=== PATIENT | male | born 1950 | race Caucasian/White ===

== ENCOUNTER → 2017-09-17 11:25 | Outpatient (CLI) | payer MEDICARE, OTHER, SELFPAY ==
--- NOTE | 2017-09-17 | DI.MRI.S_ITS ---
PROCEDURE: MR KNEE LT WO CON INDICATIONS: LEFT KNEE PRIMARY OSTEOARTHRITIS TECHNIQUE: Noncontrast sagittal PD fast spin echo and T2 fast spin echo with fat saturation, sagittal 3-D FLASH with fat saturation; coronal T1 spin echo and PD fast spin echo with fat saturation, and axial PD fast spin echo with fat saturation through the knee. COMPARISON: [facility], MR, LOW.EXTR.NO JOINT WWO CONTRAST, 01/27/2016, 14:12. [facility], MR, LOWER EXTREM. JNT WO CONTRAST, 08/22/2011, 10:07. FINDINGS: Image quality: Mild metallic susceptibility artifact from the patient's contralateral knee arthroplasty does create artifact on the left and results in suboptimal evaluation for subtle bony or soft tissue abnormalities, particularly on the medial aspect of the knee. Bones and joint: There is no acute fracture or dislocation. No suspicious osseous lesions are evident. There is a small knee joint effusion with an associated large Gomez's cyst. Moderate to severe tricompartmental degenerative changes of the left knee are identified. There is extensive chondromalacia identified within the medial and lateral tibiofemoral compartments with large cartilaginous defects identified. Areas of degenerative/reactive marrow change are present. There is lateral joint space narrowing. Developing marginal osteophytes are noted within all 3 compartments of the knee. Cruciate ligaments: The anterior probably is completely torn. The posterior cruciate ligament appears to be intact. Menisci: Posterior root avulsion of the medial and lateral menisci appear to be present with extensive maceration of the the medial and lateral meniscal posterior horns. Additional areas of partial-thickness tearing are seen involving the body and anterior horns of the medial and lateral menisci. Medial structures: The medial collateral ligament appears intact. The semimembranosus tendon insertion appears intact. The imaged portions of the pes anserinus tendons are unremarkable. No definite fluid is contained within the pes anserinus bursa. Lateral structures: The popliteal tendon is intact. However, there may be thickening involving this tendon. The lateral collateral ligament proper (fibular collateral ligament) and the proximal tibiofibular ligaments are intact. The distal aspect of the biceps femoris tendon and the iliotibial band are intact. Anterior structures: The quadriceps and patellar tendons are intact. There is no significant edema in the infrapatellar fat pad. IMPRESSION: 1. Moderate to severe degenerative changes of the left knee are most pronounced within the lateral compartment. 2. Full thickness anterior cruciate ligament tear. 3. Complex tears of the medial and lateral menisci with posterior root avulsions. 4. Small knee joint effusion with an associated prominent Gomez cyst. 5. Probable proximal popliteal tendinopathy. Dictated by: Efra Montejo M.D. on 09/17/2017 at 13:44 Approved by: Efra Montejo M.D. on 09/17/2017 at 13:50
== END ==
PROVIDERS: Visit Provider Orthopaedic Surgery
DX: M17.12 Unilateral primary osteoarthritis, left knee (principal); S83.512A Sprain of anterior cruciate ligament of left knee, initial encounter; M25.462 Effusion, left knee; S83.242A Other tear of medial meniscus, current injury, left knee, initial encounter; S83.282A Other tear of lateral meniscus, current injury, left knee, initial encounter
CPT/HCPCS: 73721

== ENCOUNTER → 2017-10-03 13:15 | Outpatient (CLI) | payer MEDICARE, OTHER, SELFPAY | PROVIDERS: Visit Provider Orthopaedic Surgery | DX: N39.9 Disorder of urinary system, unspecified (principal); R73.09 Other abnormal glucose; Z01.818 Encounter for other preprocedural examination; Z01.812 Encounter for preprocedural laboratory examination | CPT/HCPCS: 93005 ==

== ENCOUNTER 2017-11-13 08:24 | Inpatient (IN) | payer MEDICARE, OTHER, SELFPAY ==
[2017-11-05 12:40] VITALS: BMI 43.6
[2017-11-13] VITALS (19 sets, daily range): BP systolic 125–179; BP diastolic 65–97; PULSE 57–79; RESP 8–17; TEMP 36–36.9; O2SAT 91–98; BMI 43.6
--- NOTE | 2017-11-13 | DI.RAD.S_ITS ---
PROCEDURE: XR KNEE LT 1TO2V INDICATIONS: TOTAL LEFT KNEE TECHNIQUE: 2 views of the knee acquired. COMPARISON: None. FINDINGS: Bones: Patient is status post left knee joint arthroplasty. Hardware components are in expected positions. Visualized bony structures are intact. Soft tissues: Overlying postoperative changes are noted including surgical drain, surgical suzi, and gas and fluid in the joint space.. IMPRESSION: 1. Expected postsurgical changes status post left knee arthroplasty. Dictated by: Vinicius Solano M.D. on 11/13/2017 at 14:55 Approved by: Vinicius Solano M.D. on 11/13/2017 at 14:55
[2017-11-13] MEDS: LACTATED RINGERS 1,000 ML 42 ML IV (09:22)
[2017-11-13] MEDS: VANCOMYCIN 1,000 MG/200 ML FROZ.PIGGY 200 MG IV (09:51)
[2017-11-13] MEDS: CEFAZOLIN VIAL 3 GM in SODIUM CHLORIDE 0.9% 100 ML 200 ML IV (10:30)
--- NOTE | 2017-11-13 10:36 | P.OP_ITS ---
Operative Date/Time/Diagnoses Date of procedure: 11/13/17 Time of procedure: 10:41 Pre-op diagnosis: Left knee osteoarthritis Post-op diagnosis: same Procedure & Clinicians Procedure: Left total knee arthroplasty Same procedure as scheduled: Yes Indications: The patient has had progressively worsening left knee pain with radiographic changes consistent with arthritis. Non-operative management has failed and the patient has requested total knee replacement. The risks, benefits and alternatives to surgery were discussed with the patient prior to proceeding. Risks discussed included, but were not limited to, failure to relieve pain, stiffness, infection, nerve damage, deep venous thrombosis, pulmonary embolism, stroke, coma, heart attack, permanent paralysis and , as well as the potential need for eventual revision of the prosthetic. Surgeon: Jaimie Lopes Cooker Pie Filling: Akila Izquierdo Anesthesia Type: General Operative Notes Findings: Severe left knee osteoarthritis Closure Type: primary Specimen(s): none sent Implants & Drains: Lopes and Nephew Eleanor BCS 2 femur 7, tibia 6, poy +10, patella 38 Applied: drain(s) Estimated Blood Loss (mL): 300 Blood products transfused: none Tourniquet time (min): 77 Procedure in detail: The patient was seen in the pre-operative area, where the patient identified the left knee as the operative site and this was marked with my initials. The patient received pre-operative antibiotics, and was taken to the operating room and placed on the operative table in the supine position. After satisfactory anesthesia, a multimedia manager out was performed. The left leg was encircled with a tourniquet about the proximal thigh, and the leg was prepared from the toes to the tourniquet with ChloroPrep in the usual fashion and draped through sterile drapes. The leg was elevated and exsanguinated with Eschmark bandage and the tourniquet inflated to [250] mmHg pressure. The knee was approached through an approximately 18 cm incision centered over the patella and carried into the knee through a medial parapatellar arthrotomy. A portion of the medial and lateral meniscus was resected. Soft tissue was carefully mobilized around the patella the patella was measured with a caliper. Bone was resected from the patella and the patellar height was reconstituted with up an appropriate sized patellar component. For a cover was then placed on the patella. A small amount of additional medial and lateral meniscus was resected. The visionare guide fit well to the distal femur. It looked like an appropriate distal femoral cut and the cut was made without difficulty. The rotation was assessed and the appropriate size femoral guide was placed on the distal femur and finishing cuts were made. There was no evidence of notching. The anterior, posterior and chamfer cuts were then made. The posterior osteophytes and soft tissues were then removed. The posterior capsule was injected with part of a mixture of 60 ml 0.25% Marcaine mixed with 20 ml Exparel for post operative pain control. The remainder of this mixture was injected into the capsule and subcutaneous tissues during cement curing. The tibia was prepared and the visionaire guide fit well to the distal tibia. The rotation was assessed. The patient was placed in extension residual medial and lateral meniscus as well as any residual bone was carefully resected. [No] additional tibia was resected. Hemostasis was achieved especially posteriorly. Additional local was injected into the posterior capsule. The extension gap was assessed and additional releases for gap balancing were performed as necessary. It was checked with the gap manager games. The femoral component was trial was placed and the notch was finished. Trial tibial and femoral components were then placed and the knee placed through a range of motion. Range of motion was [ 0-130], with good stability throughout the range. The trials were then removed, and the tibia was finished. The bone was prepared with pulsatile lavage, and dried with a sponge. Cement was applied and the final prosthetics placed. Excess cement was removed during and after cement curing. A brief Betadine soak was performed. After confirming there was no extruded cement posteriorly, the final tibial insert was placed. The knee was copiously irrigated and the tourniquet deflated. Hemostasis was obtained with the cautery. A drain was placed and brought out superolaterally. The capsule was closed with interrupted # 1 black braided suture. The subcutaneous layer was closed with barbed sutures, and the skin with a running 3-0 V-Lock suture and Surgical glue. An Aquacel Ag dressing was applied and the patient was taken to recovery having tolerated the procedure well. Complications: none Condition: stable Disposition: Acute Care Plan for aftercare: The patient will be maintained on a standard total knee replacement protocol with weight bearing as tolerated. The patient will receive Aspirin and sequential compression devices for DVT prophylaxis. The patient will be discharged home when safe for the home environment.
--- NOTE | 2017-11-13 10:36 | PM.PREOP ---
Pre-operative Note Interval Note Pre-op Check: History & Physical Reviewed by Physician
[2017-11-13] MEDS: BUPIVACAINE LIPOSOME 266 MG/20 ML VIAL INJ (11:16)
[2017-11-13] MEDS: BUPIVACAINE 0.25% W/ EPI 50 ML VIAL INJ (11:16)
[2017-11-13] MEDS: POVIDONE-IODINE 15 ML, SODIUM CHLORIDE 0.9% 250 ML TOP (11:17)
--- NOTE | 2017-11-13 11:23 | SUR.OPER ---
Supine on padded OR bed. Pillow under head, arms secured on padded armboards <90 degree abduction. Safety belt across torso. Non-operative leg secured with tape over blanket over lower leg. Operative leg secured in DeMayo/Luke positioner. Foam padded brace at thigh of operative leg.
[2017-11-13] MEDS: TRANEXAMIC ACID 1,000 MG VIAL 1000 MG IV (11:31)
[2017-11-13] MEDS: LACTATED RINGERS 1,000 ML 40 ML IV (12:33)
[2017-11-13] MEDS: HYDROMORPHONE 2 MG INJ 0.25 MG IV ×4 (13:29→13:45)
--- NOTE | 2017-11-13 13:54 | SUR.PHASEI ---
REPORT CALLED TO SUSHMA LOPEZ ON ACUTE CARE FLOOR. PT IN STABLE CONDITION, VSS. IV SITE CLEAR. DRSG TO SURGICAL KNEE OBSERVED TO BE C/D/I. HEMOVAC INTACT AND CLAMPED. PT TOLERATING ORAL INTAKE WITHOUT ANY DIFFICULTLY. PT DENIES ANY NAUSEA. PT STATES PAIN LEVEL IS TOLERABLE AT THIS TIME, 08/14. SURGICAL EXTREMITY WARM TO TOUCH, CAP REFILL WNL, +PULSE AND +SENSTATION. PT TRANSFERED TO ACUTE CARE FLOOR. PT ALERT AND TALKING TO RN DURING TRANSPORT. PT TRANSPORTED ON 2L REMAINED 95-96%. BEDSIDE REPORT GIVEN TO SUSHMA HODGES. TRANSFERED CARE OF PT TO SUSHMA HODGES.
--- NOTE | 2017-11-13 14:08 | PC.NURSE ---
Day shift: Arrived on unit at approx 1400. A&Ox4. CMS in tact. VS ok. BP elevated. Pain 08/14. Gonzales-vac clamped. 2L NC 98%. PPP. Oriented to room and call light. High fall risk. Agrees to not get OOB. Door to room open.
[2017-11-13] MEDS: LACTATED RINGERS 1,000 ML 125 ML IV ×2 (14:42→22:18)
[2017-11-13] MEDS: CEFAZOLIN 2 GM/100 ML FROZ.PIGGY IV ×2 (17:21→22:15)
[2017-11-13] MEDS: FUROSEMIDE 40 MG TABLET 80 MG PO (17:21)
[2017-11-13] MEDS: ACETAMINOPHEN 325 MG TABLET 650 MG PO (17:27)
[2017-11-13] MEDS: OXYCODONE IR 10 MG TABLET PO (20:18)
[2017-11-13] MEDS: ASPIRIN EC 81 MG TABLET PO (20:19)
[2017-11-13] MEDS: DOCUSATE 100 MG CAPSULE PO (20:19)
[2017-11-13] MEDS: ATORVASTATIN 20 MG TABLET PO (20:19)
[2017-11-13] MEDS: FERROUS SULFATE 325 MG TABLET PO (20:19)
[2017-11-13] MEDS: LOSARTAN 50 MG TABLET PO (20:20)
[2017-11-13] MEDS: METOPROLOL 25 MG TABLET PO (20:21)
[2017-11-13] MEDS: SENNOSIDES 8.6 MG TABLET 17.2 MG PO (20:21)
[2017-11-13] MEDS: METOCLOPRAMIDE 10 MG/2 ML INJ IV (20:22)
[2017-11-14] MEDS: ACETAMINOPHEN 325 MG TABLET 650 MG PO ×3 (00:26→11:56)
[2017-11-14 00:44] VITALS: BP 136/79; PULSE 58; RESP 17; TEMP 36.6; O2SAT 100
[2017-11-14 04:39] VITALS: BP 136/80; PULSE 61; RESP 17; TEMP 36.5; O2SAT 98
[2017-11-14 05:44] LABS: Hematocrit 35.3 % (41-53); Hemoglobin 12.1 g/dL (13.5-17.5)
[2017-11-14] MEDS: PANTOPRAZOLE 40 MG TABLET PO (05:59)
[2017-11-14 07:50] VITALS: BP 113/71; PULSE 63; RESP 16; TEMP 36.4; O2SAT 97
--- NOTE | 2017-11-14 07:59 | P.DS_ITS ---
History of Present Illness Date Patient Seen: 11/14/17 Time Patient Seen: 07:55 Chief complaint: [id number] LEFT TOTOAL KNEE ARTHROPLASTY Narrative: This is a 67-year-old male with history of left knee osteoarthritis. He failed conservative measures and elected to proceed with a left total knee replacement with Dr. Lopes at [facility]. Discharge Providers Date of admission: 11/13/17 08:24 Primary care physician: Tanya Neal MD Consults: 11/13/17 14:23 Consult to Discharge Planning Routine Comment: Consult to Physical Therapy Evaluate & Treat Comment: Physician Instructions: postop TKA protocol Consult to Respiratory Therapy Evaluate & Treat Comment: Physician Instructions: Evaluate and treat Discharge provider: Akila Izquierdo PA-C Summary Discharge Diagnosis: Left knee osteoarthritis Hospital Course: Patient was admitted and taken to the operating room we had a left total knee replacement with Dr. Lopes. He recovered well was transferred to floor for further care. Postop day 1 patient's pain was under control, he was able to urinate without difficulty, and ambulating well. He was ready to be discharged home. He is a [facility] patient and has his discharge medications are ready. Physical therapy is set up next week at [facility]. Status at Discharge Cognitive/behavioral status at discharge: Alert and orient x3 Functional status at discharge: uses cane/walker Overall status at discharge: patient is progressing back to baseline Time Spent with Patient Less than 30 minutes Exam Vital Signs (past 8 hours): - 11/14/17 00:44 11/14/17 04:39 Temperature 97.9 F 97.7 F Pulse Rate 58 L 61 Respiratory Rate 17 17 Blood Pressure 136/79 H 136/80 H Pulse Oximetry 100 98 Oxygen Delivery Method Room Air Oxygen Flow Rate 1 Narrative Exam Narrative: Patient in bed. Appears comfortable. Alert and orient x3. Left knee dressing clean dry and intact with an Steve bandage over wrapp. Bilateral calves soft and nontender. 5/5 left ankle strength. Neurovascular status intact. Hemovac drain in. Objective Labs Result Diagrams: 11/14/17 05:07 Labs: Laboratory Results - last 24 hr 11/14/17 05:07 Hgb 12.1 L Hct 35.3 L Discharge Plan Discharge Plan Patient Disposition: Home, Self-Care Discharge comment: Start physical therapy next week. Continue home exercises. Discharge Med Rec/Prescriptions Prescriptions: New acetaminophen 325 mg Tablet 650 mg PO Q6HR Qty: 0 RF: 0 aspirin 81 mg Tablet,Delayed Release (Dr/Ec) 81 mg PO BID Qty: 0 RF: 0 oxycodone 10 mg Tablet 10 mg PO Q4H PRN (Reason: Pain, Moderate (4-6)) Qty: 0 RF: 0 Continue multivitamin Capsule 1 cap PO DAILY Qty: 0 RF: 0 atorvastatin [Lipitor] 20 MG tablet 20 mg OR HS Qty: 0 RF: 0 losartan 100 MG tablet 50 mg PO BEDTIME Qty: 0 RF: 0 metoprolol tartrate 25 MG tablet 25 mg PO BID Qty: 60 RF: 0 furosemide 80 MG tablet 80 mg OR QDAY Qty: 30 RF: 0 ferrous sulfate [Iron (ferrous sulfate)] 325 MG tablet 325 mg PO BID Qty: 60 RF: 0 pantoprazole [Protonix] 40 MG tablet,delayed release (DR/EC) 40 mg PO QAM RF: 0 Discontinued aspirin 81 mg Tablet,Delayed Release (Dr/Ec) 81 mg PO DAILY Qty: 0 RF: 0 oxycodone 5 mg Capsule 5 mg PO Q4-6H PRN (Reason: pain) Qty: 0 RF: 0 Provider Discharge Instructions Diet: Diet as Tolerated Activity: As tolerated Cold/Heat Therapy: Apply ice to the extremity as needed for pain and swelling Wound Care Report to your healthcare provider any signs of infection, such as:: chills, fever, increased pain and unusual drainage Dressing: May remove the Steve dressing tomorrow. Keep Aquacel dressing intact. May shower. Visit Report/Discharge Packet Instructions: DI for Knee Replacement Discharge Data Primary Care Provider: Tanya Neal Attending Provider: Jaimie Lopes Admit Date/Time: 11/13/17 08:24
[2017-11-14] MEDS: OXYCODONE IR 10 MG TABLET PO ×2 (09:12→11:58)
[2017-11-14] MEDS: FERROUS SULFATE 325 MG TABLET PO (09:13)
[2017-11-14] MEDS: DOCUSATE 100 MG CAPSULE PO (09:13)
[2017-11-14] MEDS: ASPIRIN EC 81 MG TABLET PO (09:13)
[2017-11-14] MEDS: MULTIVITAMIN 1 TABLET 1 TAB PO (09:13)
[2017-11-14] MEDS: SODIUM CHLORIDE 0.9% FLUSH 10 ML IV (09:13)
[2017-11-14] MEDS: FUROSEMIDE 40 MG TABLET 80 MG PO (09:14)
[2017-11-14] MEDS: METOPROLOL 25 MG TABLET PO (09:21)
--- NOTE | 2017-11-14 10:04 | CM.DANOTE ---
Addendum entered by JANIA Briggs 11/14/17 12:08: ADD: Per PT, recommending safe d/c home with Dtr and FWW. SW placed FWW order and pt to d/c home today with no further SW needs at this time. JANIA Brgigs Original Note: Patient is a 67 year old male who was admitted on 11/13/17 for Total Knee. Pt has [employer] for insurance and his PCP is Dr. Neal. EMR was reviewed. Per Ortho PA, pt may be stable for d/c home today pending PT eval and assessment. PT ordered and pending. SW met bedside with pt and explained role and pt confirmed that he lives at home in [place] alone but has local adult Dtr who plans to stay with him at d/c for assist if needed. Pt is independent with ADL's at baseline and drives. Pt confirmed that he already has outpt PT set up at [facility] in [place] and preference is home with his Dtr to stay with him and she can provide transport at d/c. Pt does not anticipate any further SW needs. Plan: SW to follow for PT eval and recommendations towards likely pt d/c home via Dtr POV later today. SW to follow for any further d/c planning needs. JANIA Briggs Discharge Planning/Care Management CM Discharge Assessment Start: 11/14/17 10:00 Freq: Status: Active Protocol: Document 11/14/17 10:00 (Rec: 11/14/17 10:04 [id number]) Discharge Planning Assessment Assigned Gleason Gear Generator JANIA History Provided By Patient Has Patient been admitted in last 30 No days? Is this patient on Medicare? Yes Is the admit diagnosis the same? Yes Prior Living Arrangements House Household Members none Type of transporation used prior to Drives own vehicle admit Independent with ADL's Yes Is patient alert and oriented? Yes Caregiver for Another No Patient Discharge Plan Description OP PT Therapy Referrals Initiated None needed Discharge Plan Home Transportation Arrangement Patient's adult Dtr can provide transport at d/c and gets off work at 1230 today. Review Status In Process Next Review Type Discharge Review
[2017-11-14 10:35] VITALS: O2SAT 97
--- NOTE | 2017-11-14 12:40 | PT.IIE ---
Current Diagnoses Unilateral primary osteoarthritis, left knee (11/13/17) Surgery Performed Operation Date: 11/13/17 10:45 Actual Procedures p Total Knee Arthroplasty(Left) - Jaimie Lopes MD Surgical History (Last Updated 11/05/17 @ 13:25 by Laura Paul, RN) History of arthroplasty of right knee (Acute) History of open heart surgery (Acute) History of partial amputation of right hand (Acute) History of total left hip arthroplasty (Acute) Hx of heart artery stent (Acute) Hx of hernia repair (Acute) Status post bilateral cataract extraction (Acute) Medical History (Last Updated 11/05/17 @ 13:25 by Laura Paul RN) ASD (atrial septal defect) (Acute) Bilateral lower leg cellulitis (Acute) CAD (coronary artery disease) (Acute) Fragile skin (Acute) HTN (hypertension) (Acute) Hepatitis C (Acute) Hepatocellular carcinoma (Acute) Jaw fracture (Acute) Nonrheumatic tricuspid valve regurgitation (Acute) Obstructive sleep apnea (Acute) PFO (patent foramen ovale) (Acute) Portal hypertension (Acute) Venous ulcer of right leg (Acute) Physical Therapy Inpatient Evaluation/Re-Eval M1 PT/OT-IP Prior Functional Status Start: 11/13/17 15:04 Freq: NEEDED Status: Active Protocol: Document 11/14/17 11:40 MDD (Rec: 11/14/17 12:39 MDD [id number]) Medical Review Prior Functional Status Medical History Reviewed Yes Mobility and Gait Independent with gait and mobility Activities of Daily Living and IADL's Independent with ADL's Social History Household Members none Living Arrangements House Number of Floors (Floors) One Floor Number of Stairs To Enter/Railing? 2 stairs to enter, rail on L going up Home Environment High Toilet Tub/Shower Home Equipment Raised Toilet Seat w/Armrests Shower Seat with Backrest Grab Bars Near Toilet Grab Bars In Shower Employment Status Unknown Additional Social History Comment Pt's daughter will be staying with him to assist as needed upon hospital discharge. M2 PT-IP Current Condition Start: 11/13/17 15:04 Freq: NEEDED Status: Active Protocol: Document 11/14/17 11:40 MDD (Rec: 11/14/17 12:39 MDD [id number]) Physical Therapy Current Condition Current Condition Evaluation Date 11/14/17 Treatment Diagnosis status post L TKA, impaired mobility, impaired gait Onset Date 11/13/17 Weight Bearing Status Weight Bearing Status Weight Bear as Tolerated M3 PT-IP Subjective Start: 11/13/17 15:04 Freq: NEEDED Status: Active Protocol: Document 11/14/17 11:40 MDD (Rec: 11/14/17 12:39 MDD [id number]) Subjective Physical Therapy Visit Type Type Initial Evaluation Visit Start Time 11:00 Visit Stop Time 11:40 Total Visit Minutes 40 Number of INSURANCE CLAIM AUDITOR Visits 0 Physical Therapy Visit Comments Patient Comments Motivated to get up and go home. Therapy Pain Assessment Pain When Pain Assessed At Rest Pain Present Pain Present Pain Reported Location Left Knee Intensity 3 Scale Used Numeric (1 - 10) Description Aching Pain Behaviors Guarding Pain Management Techniques Timing of Activity with Medications M4 PT-IP Mobility and Gait Start: 11/13/17 15:04 Freq: NEEDED Status: Active Protocol: Document 11/14/17 11:40 MDD (Rec: 11/14/17 12:39 MDD [id number]) PT-Bed Mobility Assessment Rolling Type of Rolling Log Rolling Roll to Right Level of Assist Independent Supine to Sit Supine to Sit Independent Sit to Supine Sit to Supine Standby Assistance Contact Guard Assistance Scooting Scooting to Edge of Bed Independent PT-Transfer Assessment Sit to and From Stand Sit to and from Stand Independent Equipment Transfer Assistive Device Front Wheeled Walker Orthotic/Prosthetic Devices or Brace: No Transfers Transfer Destination Chair Transfer Ability Level of Assist Independent Gait Assessment Gait Gait Assistance Required: Independent Distance (Feet) (feet) 150 Able to Maintain Weight Bearing Status Yes During Gait Assistive Devices Assistive Device Front Wheeled Walker Orthotic/Prosthetic Devices or Brace: No Gait Deviations General Gait Pattern Antalgic Stair Climbing Assessment Comments Stair Climbing Comments Pt denied need to practice stairs today. Feels confident in his ability to ascend 2 steps. PT-Balance Assessment Sitting Balance and Reactions Static Sitting Balance Ability Normal Dynamic Sitting Balance Ability Good Standing Balance and Reactions Static Standing Balance Ability Normal Dynamic Standing Balance Ability Good Balance Tests Romberg 30 seconds, nml M5 PT-IP Objective Assessments Start: 11/13/17 15:04 Freq: NEEDED Status: Active Protocol: Document 11/14/17 11:40 MDD (Rec: 11/14/17 12:39 MDD [id number]) Orientation Orientation/Cognition Level of Alertness Alert Orientation Name Age Birthday Month Date Year Day of Week Place Situation Language Function Ability No Deficits Noted Safety Awareness Understands Safety Issues Memory Description No Deficits Noted Gross Range of Motion Upper Extremity ROM Assessment Within Functional Limits Lower Extremity ROM Assessment Within Functional Limits Strength Upper Extremity Strength Assessment Within Functional Limits Lower Extremity Strength Assessment Within Functional Limits Coordination Assessment Gross Coordination Gross Coordination WNL Sensation Assessment Sensation Gross Sensation WNL Light Touch Intact M6 PT-IP Treatment Start: 11/13/17 15:04 Freq: NEEDED Status: Active Protocol: Document 11/14/17 11:40 MDD (Rec: 11/14/17 12:39 [facility] [id number]) Physical Therapy Treatment Exercises Knee ROM Measurement -15 to 85 degrees flexion Education Education Provided Precautions Weight Bearing Status Post-Op Packet Safety Equipment Issued Equipment Type and Company bariatric front wheeled walker provided for home use Other Treatments Other Treatment Performed Reviewed and discussed home exercise program pt has been performing currently M7 PT-IP Assessment and Plan Start: 11/13/17 15:04 Freq: NEEDED Status: Active Protocol: Document 11/14/17 11:40 MDD (Rec: 11/14/17 12:39 [facility] [id number]) PT Summary Assessment and Plan Potential Rehabilitation Potential Excellent Status of Condition at Evaluation Stable Summary Impairments Pain ROM Gait Progress Towards Goals Safe For Discharge Goals Met Assessment Summary Post op day 1 L TKA performing bed mobility, transfers and gait well. Scheduled for outpatient PT in [place]. Goals Bed Mobility Goal Independent Transfer Goal Independent Gait Goal Independent Other Goals Able to ascend/descend 2 steps with single railing L going up. Frequency of Treatment Frequency Of Treatment Twice a Day Treatment Plan Physical Therapy Treatment Plan Bed Mobility Training Transfer Training Gait Training Therapeutic Exercise Recommendations To Nursing Amount of Assist Needed Independent Discharge Recommendations PT Discharge Recommendations Home Home with Assistance Outpatient PT
--- NOTE | 2017-11-14 13:11 | PC.NURSE ---
Pt ready for discharge home with Daughter. Pt states pain is improved at 2/10 from 7. Pt already has his prescriptions. Reviewed d/c orders, meds, time of last dose, showering, and wound care. Pt has a follow up appointment already scheduled. Pt denies further questions and is getting dressed independently. Pt agrees to call when he is ready to be taken out to POV.
--- NOTE | 2017-11-14 14:01 | PC.NURSE ---
Pt out via w/c by INSURANCE MANAGER to POV with family and all belongings.
== END 2017-11-14 14:01 | disposition home or self-care (01) | DRG 470 ==
PROVIDERS: Admitting Provider Orthopaedic Surgery; PCP Internal Medicine; Visit Provider Orthopaedic Surgery
PROC: 0SRD0JZ Replacement of Left Knee Joint with Synthetic Substitute, Open Approach (ICD-10-PCS; CPT 27447; principal; 2017-11-13 10:45)
DX: M17.12 Unilateral primary osteoarthritis, left knee (principal); Z68.41 Body mass index [BMI] 40.0-44.9, adult; Z96.642 Presence of left artificial hip joint; Z96.651 Presence of right artificial knee joint; G47.33 Obstructive sleep apnea (adult) (pediatric); I10 Essential (primary) hypertension; E66.01 Morbid (severe) obesity due to excess calories; B19.20 Unspecified viral hepatitis C without hepatic coma
CPT/HCPCS: 36415; 73560; 85014; 85018; 94760; 97161; 97530; C1776; C9290; J0690; J1100; J1170; J2250; J2405; J2765; J3010; J3370

== ENCOUNTER → 2017-11-19 12:39 | Outpatient (CLI) | payer MEDICARE, OTHER, SELFPAY ==
[2017-11-13 14:13] VITALS: BMI 43.6
--- NOTE | 2017-11-19 | DI.US.S_ITS ---
PROCEDURE: US PERIPH VENOUS LOW EXTREM LT INDICATIONS: UNKNOWN TECHNIQUE: Real-time imaging, as well as color and pulse Doppler interrogation, were performed of the lower extremity deep veins from the inguinal ligament to the popliteal fossa. COMPARISON: None. FINDINGS: The deep veins are normally compressible, and free of intraluminal thrombus. Color and pulse Doppler demonstrate normal phasic intraluminal flow. There is normal augmentation response to distal compression maneuver. IMPRESSION: No evidence of left lower extremity deep vein thrombosis. Dictated by: Efra Montejo M.D. on 11/19/2017 at 12:41 Approved by: Efra Montejo M.D. on 11/19/2017 at 12:42
== END ==
PROVIDERS: PCP Internal Medicine; Visit Provider Orthopaedic Surgery
DX: M79.662 Pain in left lower leg (principal); R60.0 Localized edema
CPT/HCPCS: 93971